=== PATIENT | male | born 1975 | race Caucasian/White ===

== ENCOUNTER 2020-12-08 11:24 | Emergency (ER) | payer BC ==
[~2020-12-08] VITALS: Ht 182.9 cm; Wt 101.2 kg
[2020-12-08] MEDS ORDERED: CYCL-331 PO (12:08)
[2020-12-08] MEDS ORDERED: MELO15TA23 PO (12:08)
--- NOTE | 2020-12-08 12:08 | PHYS DOC ---
Past History Additional Past Medical Histor: CHRONIC LOWER BACK PROBLEMS Past Surgical History: No Surgical History Additional Smoking Information: 1-1.5 PACKS/DAY Alcohol Use: None General Adult EDM: Chief Complaint: BACK PAIN OR INJURY HPI: HPI: Patient is a 45-year-old male coming in for right low back pain. Patient states he was bending over yesterday when the pain started. Denies any falls or trauma. Has a history of recurrent back pain secondary to an injury 3 years ago. Patient has not taken anything for pain today. He states that in about 1 month he has an appointment for spinal injections. Denies any recent illness, has had both of his Covid vaccines. No personal family history of cancer, no recent unexpected weight loss or night sweats, denies any urinary complaints. Review of Systems: Review of Systems: All other systems within normal limits except for as noted in the HPI Allergies: Allergies: Allergies Coded Allergies Type Severity Reaction Last Updated Verified No Known Drug Allergies 12/08/20 No Physical Exam: PE: Constitutional: Well developed, well nourished, no acute distress, non-toxic appearance. [] HENT: Normocephalic, atraumatic, bilateral external ears normal, nose normal. [] Eyes: PERRLA, conjunctiva normal, no discharge. [] Neck: No rigidity, supple, no stridor. [] Cardiovascular: Regular rate and rhythm, brisk cap refill [] Lungs & Thorax: Non labored symmetric respirations, no tachypnea or respiratory distress [] Abdomen: Soft, nondistended. Skin: Warm, dry, no erythema, no rash. [] Back: Unremarkable, no step-off or deformity, no's point spinal tenderness, right lower lumbar tenderness and muscle tightness Extremities: No deformities, range of motion grossly intact, no lower extremity edema [] Neurologic: Alert and oriented X 3, no focal deficits noted. [] Psychologic: Affect normal, judgement normal, mood normal. [] Current Patient Data: Vital Signs: Vital Signs Date Time Temp Pulse Resp B/P (MAP) Pulse Ox O2 Delivery O2 Flow Rate FiO2 12/08/20 11:30 97.7 56 20 144/83 99 Room Air EKG: EKG: [] Radiology/Procedures: Radiology/Procedures: [] Heart Score: C/O Chest Pain: No Risk Factors: Risk Factors: DM, Current or recent (<one month) smoker, HTN, HLP, family history of CAD, obesity. Risk Scores: Score 0 - 3: 2.5% MACE over next 6 weeks - Discharge Home Score 4 - 6: 20.3% MACE over next 6 weeks - Admit for Clinical Observation Score 7 - 10: 72.7% MACE over next 6 weeks - Early Invasive Strategies Course & Med Decision Making: Course & Med Decision Making Pertinent Labs and Imaging studies reviewed. (See chart for details) [] Dragon Disclaimer: Dragon Disclaimer: This electronic medical record was generated, in whole or in part, using a voice recognition dictation system. Departure Departure: Impression: Primary Impression: Pain in right lumbar region of back Disposition: HOME / SELF CARE / HOMELESS Condition: LEFT WITHOUT BEING SEEN Referrals: MOHAN VELASQUEZ (PCP) Patient Instructions: Back Pain, Adult Scripts Cyclobenzaprine Hcl (CYCLOBENZAPRINE HCL) 10 Mg Tablet 1 TAB PO TID PRN for MUSCLE SPASMS, #90 TAB Prov: SARIAH ARCHULETA MD 12/08/20 Meloxicam (MELOXICAM) 15 Mg Tablet 1 TAB PO DAILY PRN for PAIN for 10 Days, #10 TAB 0 Refills Prov: SARIAH ARCHULETA MD 12/08/20 SARIAH ARCHULETA MD Dec 08, 2020 12:08
[2020-12-08] MEDS ORDERED: KETOROLAC 60 MG/2 ML VIAL. IM ONE (12:15)
[2020-12-08 12:28] VITALS: BP 132/85
== END 2020-12-08 12:15 | disposition home or self-care (01) ==
LOC: ER 11:24
DX: M54.5 Low back pain (principal); F17.200 Nicotine dependence, unspecified, uncomplicated
CPT/HCPCS: 96372; 99283; J1885